=== PATIENT | female | born 1950 | race Caucasian/White ===

== ENCOUNTER 2017-01-04 05:35 | Inpatient (IN) | payer BC, MEDICARE ==
[2016-12-25 16:24] LABS: HEMOGLOBIN 12.8 g/dL (12.0-16.0)
[2016-12-25 16:38] LABS: BUN (BLOOD UREA NITROGEN) 10 MG/DL (6-23); CALCIUM, SERUM 8.7 MG/DL (8.5-10.4); CHLORIDE, SERUM 105 MMOL/L (96-112); CO2 (CARBON DIOXIDE) 29 MMOL/L (24-34); CREATININE 0.74 MG/DL (0.55-1.02); GFR AFRICAN AMERICAN 99 ML/MIN (>=60); GFR NON AFRICAN AMERICAN 85 ML/MIN (>=60); GLUCOSE, SERUM 95 MG/DL (60-99); POTASSIUM, SERUM 4.6 MMOL/L (3.5-5.3); SODIUM, SERUM 141 MMOL/L (135-148)
--- NOTE | ~2017-01-04 | DS ---
Discharge Summary [facility] [address] [place]. [address] NAME: NILDA PERRY : 52 STATUS : DIS IN PAT#: [id number] AGE: 66 ADM/REG DATE : 01/04/17 MR#: [id number] REPORT SERV DATE: 01/16/17 DICTATED BY: PRESLEY GARNER DATE: 01/16/17 REPORT STATUS : Draft TRANSCRIBED BY: ILDA DATE: 01/16/17 Data Collection from hospitalization DISCHARGE DIAGNOSES: 1. C3 through C7 disk disease and stenosis. 2. Cervical spondylotic myelopathy. 3. Cervical radiculopathy. 4. Hypertension. 5. Gastroesophageal reflux disease. CONSULTATIONS: Rupert Nolan MD PROCEDURES: Anterior cervical diskectomy and fusion, C3-C4, C4-C5, and C5-C6; placement of Medtronic PEEK interbody spacer C3-4, C4-5, and C5-6; anterior cervical plate from Medtronic C3 through C6; allograft bone matrix, neuromonitoring, and intraoperative microscope on 01/04/2017. PATHOLOGY: Tissue from cervical spine area-benign bone and cartilage, with focal degenerative changes, medullary bone with normocellular bone marrow particles, with trilineage hematopoiesis. No metastatic malignancy, or lymphoid, or plasma cell neoplasm. DISCHARGE MEDICATIONS: Flexeril 10 mg every 8 hours as needed, Pepcid 20 mg every morning, Zestril 20 mg every morning, Lopressor 50 mg twice a day, Percocet 5/325 one to two tablets every four hours as needed. CONDITION AT DISCHARGE: Stable. DISPOSITION: The patient was discharged home on a low-sodium, low-cholesterol, cardiac diet with activities as instructed. She would follow up with me in two weeks following discharge. HOSPITAL COURSE: This is a 66-year-old female, who has intractable neck and left arm pain. She has paresthesias in the left upper extremity. She also had progressive problems with balance consistent with cervical spondylotic myelopathy. She has had an increasing number of fall. Treatment options were discussed and it was elected to proceed with surgical intervention. She was admitted to the hospital at this time for further evaluation and treatment. Upon admission, she was taken to the operating room where she underwent the above-mentioned procedure. She tolerated this well. There were no complications. Postoperatively, she was seen by Dr. Rupert Nolan regarding hypertension management. The patient said she did take both of her medications that morning with metoprolol and lisinopril. She said her systolic blood pressure at home runs in the 120s to 130s. She typically does not have any trouble with excessive hypertension. Her pain was a 6/10. She was also tachycardic with sinus tachycardia in the 120. Home JEAN CLAUDE inhibitor was going to be continued, as well as her home blood pressure medications. Pepcid was continued for gastroesophageal reflux disease. On postop day #1, white blood cell count was 13.5, hemoglobin A1c was going to be checked. She was stable neurologically. Her pain was controlled. Over the next couple of days, her Discharge Summary [address] [place]. [address] NAME: NILDA PERRY : 52 STATUS : DIS IN PAT#: [id number] AGE: 66 ADM/REG DATE : 01/04/17 MR#: [id number] REPORT SERV DATE: 01/16/17 DICTATED BY: PRESLEY GARNER DATE: 01/16/17 REPORT STATUS : Draft TRANSCRIBED BY: ILDA DATE: 01/16/17 drain was removed. She did have some dysphagia, she had some preoperatively, but it was worse now. Discharge planning was performed on 01/07/2017, her swallowing was much improved. Discharge instructions were given. Due to her improved and stable condition, she was discharged home with the above-stated instructions. Information collected by: Donna Meek I submit the above information as my discharge summary. GIOVANA/ILDA Presley Garner DO / [id number] CC: Presley Garner DO
--- NOTE | ~2017-01-04 | OP ---
Record Of Operation [facility] [address] [place]. [address] NAME: NILDA PERRY : 52 STATUS : ADM IN PAT#: [id number] AGE: 66 ADM/REG DATE : 01/04/17 MR#: [id number] REPORT SERV DATE: 01/04/17 DICTATED BY: PRESLEY MATHEW DATE: 01/04/17 REPORT STATUS : Draft TRANSCRIBED BY: MODL DATE: 01/04/17 DATE OF PROCEDURE: 01/04/2017 PREOPERATIVE DIAGNOSIS: C3 through C7 disk disease and stenosis, cervical spondylotic myelopathy, cervical radiculopathy. POSTOPERATIVE DIAGNOSIS: C3 through C7 disk disease and stenosis, cervical spondylotic myelopathy, cervical radiculopathy. PROCEDURE: Anterior cervical diskectomy and fusion, C3-4, C4-5, C5-6, placement of Medtronic PEEK interbody spacer, C3-4, C4-5, C5-6, anterior cervical plate from Medtronic C3 through C6, allograft bone matrix, neuromonitoring, and operative microscope. SURGEON: Presley Mathew DO. ANESTHESIA: General. ESTIMATED BLOOD LOSS: 20 mL. COMPLICATIONS: None. INDICATIONS: The patient is a 66-year-old with intractable neck and arm pain, progressive signs of myelopathy. After discussion of risks and benefits, elected to proceed with surgical intervention. PROCEDURE IN DETAIL: I identified the patient in the holding area. Consent was obtained. Went to the operating room. Underwent general anesthesia with endotracheal intubation. Prepped and draped in usual sterile fashion. Operative safety pause was performed, then we proceeded. An oblique incision was made over the left side of the neck, taken through the platysma. Dissection was carried out down to the anterior aspect of the spine. Longus colli elevated from C3-C6. Self-retaining retractors were placed. [place] pin was placed in the vertebral body and lateral fluoroscopic image used to verify operative level. Distraction was applied across C3-C4. Operative microscope was brought in and a knife was used to perform an annulotomy. Free disk material was removed with pituitary. Anterior osteophytes were removed with a Kerrison. Posterior osteophytes removed with a danie bur. Foraminotomies performed with a Kerrison. Endplates were prepared with curettes, rasp, and a cutting bur. Trial spacers implanted, then Medtronic PEEK interbody spacer with allograft bone matrix placed at C3-C4. This was repeated again at C4-5 and C5-C6. An attempt was made to reach the C6-C7 level but due to the patient's anatomy and orientation of the disk spaces, it was not a safe path to get there and so, I aborted on that level. [place] pins were removed. Anterior cervical plate from Medtronic was placed C3 through C6. Screws were placed, final tightened. Locking mechanisms engaged. Irrigation performed. Hemostasis achieved. Subplatysmal drain placed. Layered closure performed. Sterile dressings applied. The patient was awoken and extubated and taken to the recovery room with plans for ICU stay overnight. She tolerated the procedure well without complications. We will plan to see how the patient recovers following the surgery. If she continues to have difficulty Record Of Operation [facility] [id number] [facility] [place]. [address] NAME: NILDA PERRY : 52 STATUS : ADM IN PAT#: [id number] AGE: 66 ADM/REG DATE : 01/04/17 MR#: [id number] REPORT SERV DATE: 01/04/17 DICTATED BY: PRESLEY MATHEW DATE: 01/04/17 REPORT STATUS : Draft TRANSCRIBED BY: ILDA DATE: 01/04/17 from the C6-C7 level, it could be addressed more safely from a posterior approach. RASHAD/ILDA Presley Mathew DO / [id number] CC: Presley Mathew DO
--- NOTE | ~2017-01-04 | PREOPHP ---
PreOp History and Physical [facility] [address] [facility] [place]. [address] NAME: NILDA PERRY : 52 STATUS : ADM IN PAT#: [id number] AGE: 66 ADM/REG DATE : 01/04/17 MR#: [id number] REPORT SERV DATE: 01/04/17 DICTATED BY: PRESLEY GARNER DATE: 01/04/17 REPORT STATUS : Draft TRANSCRIBED BY: ILDA DATE: 01/04/17 CHIEF COMPLAINT: Neck pain, left upper extremity pain, and paresthesias. HISTORY OF PRESENT ILLNESS: The patient is a 66-year-old with intractable neck and left arm pain. She has paresthesias in the left upper extremity. She also has progressive problems with balance consistent with cervical spondylotic myelopathy. She is having increasing number of falls. REVIEW OF SYSTEMS: She denies chest pain, shortness of breath, and bowel or bladder changes. HOME MEDICATIONS: Denied. ALLERGIES: HYDROCODONE, LISINOPRIL, MELOXICAM, PREDNISONE, METOPROLOL, AND PERCOCET. PAST MEDICAL HISTORY: Hypertension. FAMILY HISTORY: Noncontributory. PHYSICAL EXAMINATION: VITALS: Height 5 feet 3 inches, weight 215 pounds, BMI 38.1. GENERAL: The patient is healthy appearing, no acute distress. PSYCH: Alert and oriented x3. Normal mood and affect. Gait is somewhat unsteady. VASCULAR: No extremity swelling. SPINE: Decreased cervical motion. HEART: Regular rate and rhythm. LUNGS: Clear to auscultation. ABDOMEN: Soft, nontender, nondistended with good bowel sounds. BREASTS AND RECTAL: Both deferred. NEUROLOGIC: Strength in the upper extremities remains 5/5 for the deltoids, biceps, triceps, wrist extensors, finger flexors, and interossei. IMAGING: I have reviewed the MRI scan of the cervical spine with the patient. 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 ASSESSMENT: C3-7 disc disease and stenosis, spinal cord and nerve root compression, progressive signs of myelopathy with worsening balance and altered gait. Failed conservative treatment with progressive neurologic decline. PLAN: The patient presents for surgical intervention. Consent was obtained. All questions were answered. She is ready for surgery. RASHAD/ILDA PreOp History and Physical [address] [place]. [address] NAME: NILDA PERRY : 52 STATUS : ADM IN PAT#: [id number] AGE: 66 ADM/REG DATE : 01/04/17 MR#: [id number] REPORT SERV DATE: 01/04/17 DICTATED BY: PRESLEY GARNER DATE: 01/04/17 REPORT STATUS : Draft TRANSCRIBED BY: ILDA DATE: 01/04/17 Presley Garner DO / [id number] CC: Presley Garner DO
--- NOTE | ~2017-01-04 | CN ---
Consultation Report [facility] [address] [place]. [address] NAME: NILDA PERRY : 52 STATUS : ADM IN PAT#: [id number] AGE: 66 ADM/REG DATE : 01/04/17 MR#: [id number] REPORT SERV DATE: 01/04/17 DICTATED BY: ALEXANDRA NOLAN DATE: 01/04/17 REPORT STATUS : Draft TRANSCRIBED BY: MODGuillermina DATE: 01/04/17 CONSULTATION REPORT DATE OF CONSULTATION: 01/04/2017 REASON FOR CONSULTATION: Hypertension management. HISTORY OF PRESENT ILLNESS: The patient is a 66-year-old white female with a past medical history of hypertension, gastroesophageal reflux disease, and cervical spondylotic myelopathy who is now postop day #0 from anterior cervical diskectomy and fusion, C3 through C6. The patient apparently had been having two to three months of worsening intractable neck pain that was radiating down to her bilateral arms, but mainly in her left arm, which was also associated with some paresthesias. She also had worsening balance and gait and had been having falls recently. She was placed on empiric conservative NSAID therapy, which apparently failed and she continued to have progression of her symptoms. Therefore, Dr. Garner performed a diskectomy and fusion of C3 through C6 earlier today and we are consulted for postoperative hypertension management. The patient has a history of hypertension and takes metoprolol twice a day as well as lisinopril at home. She states that she did take both of her medications this morning. She says normally her systolic blood pressure at home runs in the 120s to 130s. She typically does not have any trouble with excessive hypertension. Currently, her systolic blood pressure is in the 150s and she says her pain is a 6/10. She is also tachycardic with sinus tachycardia in the 120s at this time as well. Otherwise, she is not having any complaints. PAST MEDICAL HISTORY: 1. Hypertension. 2. Gastroesophageal reflux disease. 3. Cervical spine disease as above. ALLERGIES: NO KNOWN DRUG ALLERGIES. HOME MEDICATIONS: 1. Metoprolol 50 mg p.o. twice daily. 2. Lisinopril 20 mg p.o. daily. 3. Pepcid 20 mg p.o. daily. SOCIAL HISTORY: She denies tobacco, alcohol, or IV drug abuse. FAMILY HISTORY: Remarkable for CVA in her father as well as dementia in her mother. REVIEW OF SYSTEMS: A 10-point review of systems is negative except as mentioned in the HPI. PHYSICAL EXAMINATION: Consultation Report [facility] [address] [place]. [address] NAME: NILDA PERRY : 52 STATUS : ADM IN PAT#: [id number] AGE: 66 ADM/REG DATE : 01/04/17 MR#: [id number] REPORT SERV DATE: 01/04/17 DICTATED BY: ALEXANDRA NOLAN DATE: 01/04/17 REPORT STATUS : Draft TRANSCRIBED BY: ILDA DATE: 01/04/17 VITAL SIGNS: Temperature 97.6, heart rate 112, respiratory rate 14, and blood pressure 150/65. GENERAL: In no acute distress. HEENT: Pupils are equal, round, and reactive to light. Extraocular movements are intact. Oropharynx is clear. Moist mucous membranes. NECK: Supple and nontender. Neck brace in place. No thyromegaly, no jugular venous distention able to be assessed. LUNGS: Clear to auscultation bilaterally. CARDIOVASCULAR: Tachycardic. No murmurs, rubs, or gallops. ABDOMEN: Soft, nontender, and nondistended. Positive bowel sounds. No hepatosplenomegaly. EXTREMITIES: No cyanosis, clubbing, or edema. NEUROLOGIC: Alert and oriented x3. Cranial nerves appear intact. PSYCH: Mood appropriate. LABS AND IMAGING: Pending at the time of dictation. ASSESSMENT AND PLAN: The patient is a 66-year-old female with past medical history of hypertension, gastroesophageal reflux disease, and cervical disease who is postoperative day #0 from anterior spinal fusion and diskectomy of C3 through C6 with postoperative hypertension. 1. Hypertension, most likely her blood pressure is elevated at this time secondary to pain. We will continue pain control per the primary surgical team. She is due to get a dose of her metoprolol tonight. We will follow up to ensure that her blood pressure does improve with this. If not, we may order a p.r.n. medication. Otherwise, we will continue her home JEAN CLAUDE inhibitor as well. We will get a metabolic panel profile tonight to assess her creatinine since we are restarting this home medication. 2. Gastroesophageal reflux disease. The patient will be on her home Pepcid. 3. Appreciate the consult. We will continue to follow along with you. Please call with questions. HOLLEY/ILDA Alexandra Nolan MD / [id number] CC: Presley Garner,
[~2017-01-04 05:35] MED LIST: CALTRA600D PO; ESTRACE VAG0.1 MG/GM V; LOP50 PO; PEP20 PO; ZESTRIL20 MG PO
[2017-01-04 20:58] LABS: BASOPHILS 0 %; EOSINOPHILS 0 %; HEMATOCRIT 35.7 % (36.0-48.0); HEMOGLOBIN 12.4 g/dL (12.0-16.0); IMMATURE GRANULOCYTES 0.1 %; IMMATURE GRANULOCYTES ABSOLUTE 0.02 10/3/uL (0.0-0.11); LYMPHOCYTES 9.7 %; MEAN CORPUS HGB CONC 34.7 g/dL (32.0-36.0); MEAN CORPUSCULAR VOLUME 86.4 fL (80-100); MEAN PLATELET VOLUME 10.4 fL (9.2-13.0); MONOCYTES 2.7 %; MONOCYTES ABSOLUTE 0.36 10/3/uL (0.21-1.20); NEUTROPHILS 87.5 %; NEUTROPHILS ABSOLUTE 11.77 10/3/uL (2.02-8.40); PLATELET COUNT 155 10/3/uL (150-400); RBC DISTRIBUTION WIDTH 12.8 % (12.0-16.0); RED CELL COUNT 4.13 10/6/uL (4.0-5.6)
[2017-01-04 20:59] LABS: MANUAL DIFF NO %; WHITE BLOOD CELLS 13.5 10/3/uL (4.5-10.5)
[2017-01-04 21:16] LABS: CALCIUM, SERUM 8.5 MG/DL (8.5-10.4); CHLORIDE, SERUM 105 MMOL/L (96-112); CO2 (CARBON DIOXIDE) 28 MMOL/L (24-34); CREATININE 0.69 MG/DL (0.55-1.02); GFR AFRICAN AMERICAN 106 ML/MIN (>=60); GFR NON AFRICAN AMERICAN 91 ML/MIN (>=60); POTASSIUM, SERUM 4.2 MMOL/L (3.5-5.3); SODIUM, SERUM 138 MMOL/L (135-148)
[2017-01-04 21:17] LABS: BUN (BLOOD UREA NITROGEN) 17 MG/DL (6-23); GLUCOSE, SERUM 165 MG/DL (60-99)
[2017-01-05 04:32] LABS: A/G RATIO 0.8 (0.7-1.9); ALBUMIN 3.1 G/DL (3.5-5.0); ALKALINE PHOSPHATASE 66 U/L (45-117); CALCIUM, SERUM 8.4 MG/DL (8.5-10.4); CHLORIDE, SERUM 107 MMOL/L (96-112); CO2 (CARBON DIOXIDE) 28 MMOL/L (24-34); CREATININE 0.61 MG/DL (0.55-1.02); GFR AFRICAN AMERICAN 110 ML/MIN (>=60); GFR NON AFRICAN AMERICAN 95 ML/MIN (>=60); GLOBULIN 3.8 G/DL (2.5-4.1); POTASSIUM, SERUM 4.2 MMOL/L (3.5-5.3); SGOT(AST) 16 U/L (5-40); SGPT(ALT) 20 U/L (5-65); SODIUM, SERUM 142 MMOL/L (135-148); TOTAL BILIRUBIN 0.3 MG/DL (0-1.2); TOTAL PROTEIN 6.9 G/DL (6.0-8.5)
[2017-01-05 04:38] LABS: BUN (BLOOD UREA NITROGEN) 13 MG/DL (6-23); GLUCOSE, SERUM 131 MG/DL (60-99)
[2017-01-07] MEDS ORDERED: FLEX PO (09:16)
[2017-01-07] MEDS ORDERED: PCET PO (09:17)
== END 2017-01-07 15:10 | disposition home or self-care (01) | DRG 473 ==
LOC: SDC 05:35 → SDC/OF 05:51 → PACU 11:06 → MIC 12:32 → 3SO 01-05 14:32
PROVIDERS: Orthopaedic Surgery; Radiology Radiation Oncology
PROC: 4A11X4G Monitoring of Peripheral Nervous Electrical Activity, Intraoperative, External Approach (ICD-10-PCS; 2017-01-04)
PROC: 0RG20A0 Fusion of 2 or more Cervical Vertebral Joints with Interbody Fusion Device, Anterior Approach, Anterior Column, Open Approach (ICD-10-PCS; principal; 2017-01-04 07:45)
PROC: 0RT30ZZ Resection of Cervical Vertebral Disc, Open Approach (ICD-10-PCS; 2017-01-04 07:45)
DX: M47.12 Other spondylosis with myelopathy, cervical region (principal); I10 Essential (primary) hypertension; M47.22 Other spondylosis with radiculopathy, cervical region; E66.9 Obesity, unspecified; K21.9 Gastro-esophageal reflux disease without esophagitis; Z68.38 Body mass index [BMI] 38.0-38.9, adult; Z79.899 Other long term (current) drug therapy; Z88.5 Allergy status to narcotic agent; Z88.8 Allergy status to other drugs, medicaments and biological substances
CPT/HCPCS: 80048; 80053; 82962; 83036; 83735; 85014; 85018; 85025; 87641; 88304; 88311; 93005; 97110-GP; 97116-GP; 97161-GP; A9270-GY; C1713; G8978-CK-GP; G8979-CJ-GP; J0690; J1170; J2250; J2270; J2370; J2405; J2710; J3010